=== PATIENT | female | born 1965 | race Caucasian/White ===

== ENCOUNTER 2020-02-07 07:58 | Day surgery (SDC) | payer OTHER ==
[2020-02-07] MEDS ORDERED: Sodium Chloride 0.9% 1,000 ML IV SCH (09:30)
[2020-02-07] MEDS ORDERED: Midazolam 1 MG/ML 2 ML SDV ONE (09:41)
[2020-02-07] MEDS ORDERED: fentaNYL 100 MCG/2 ML SDV ONE (09:41)
[2020-02-07] MEDS ORDERED: Propofol 200 MG/20 ML SDV ONE ×2 (09:41→10:02)
--- NOTE | 2020-02-07 15:32 | OR ---
DATE OF PROCEDURE: 02/07/2020 SURGEON: Raúl Olguin MD PROCEDURE: Colonoscopy. FINDINGS: Normal colonoscopy. PREOPERATIVE DIAGNOSIS: Positive screening test. POSTOPERATIVE DIAGNOSIS: Positive screening test. RISKS: Risks, benefits, alternatives, and limitations including, but not limited to infection, bleeding, and perforation were explained to the patient, who wished to proceed. PROCEDURE IN DETAIL: The patient was placed in left lateral decubitus position. Digital rectal exam was performed without abnormality. Scope was introduced and advanced atraumatically to the ileocecal valve. A photo was taken. The scope was brought back through the ascending, transverse, descending colon and retroflexed. There was some solid stool remaining, along with liquid; however, this was suction irrigated, and greater than 90% luminal surface could be seen. No colitis, no diverticulosis, and no abnormalities and retroflexed. The patient tolerated the procedure well. Raúl Olguin MD /[id number]
== END 2020-02-07 11:29 | disposition home or self-care (01) ==
LOC: JP.SDS 07:58
PROVIDERS: ATTEND Surgery
DX: R19.5 Other fecal abnormalities (principal); I10 Essential (primary) hypertension; J45.909 Unspecified asthma, uncomplicated
CPT/HCPCS: 45378; J2250; J2704; J3010; J7030